=== PATIENT | male | born 1995 | race Caucasian/White ===

== ENCOUNTER 2016-09-19 00:44 | Emergency (ER) | payer SELFPAY ==
[~2016-09-19] VITALS: Ht 182.9 cm; Wt 63.5 kg
[2016-09-19 00:55] VITALS: BP 127/76
[2016-09-19] MEDS ORDERED: DIPHTH,PERTUSS(ACELL),TET TOX 0.5 ML DISP.SYRIN. VAX IM ONE ×2 (01:14→01:15)
[2016-09-19] MEDS ORDERED: AMOXICILLIN/K CLAV 875/125MG TABLET. ONE (01:14)
[2016-09-19] MEDS ORDERED: AMOXICILLIN/K CLAV 875/125MG TABLET. PO ONE (01:15)
[2016-09-19] MEDS ORDERED: AMOX1TAB61 PO (01:22)
--- NOTE | 2016-09-19 01:23 | PHYS DOC ---
Adult General Chief Complaint Chief Complaint: ANIMAL BITE HPI HPI Patient is a 21 year old male who presents with complaint of dog bite to the left calf. Patient states this took place approximately 30 minutes prior to arrival. Patient states that he was entering his own apartment. Patient states that a neighbor who had his dog on a leash in the department next to him was out from. The patient states that the dog may have become threatened by him in the vicinity of the medical imaging director. The patient states that the dog bit him once on the left calf. The incident was not reported. Patient states that the medical imaging director stated that the dog was up-to-date on his immunizations though this was not confirmed by paperwork. The patient states that the dog medical imaging director's easily locatable and that the dog could be observed over the next week to ensure no development of rabies symptoms. Patient states that there is minimal tenderness at the bite site. Patient rinse the area with water and applied Neosporin prior to arrival. Patient does not know when he last received his tetanus shot but states that this may have been over 5 years ago. Review of Systems Review of Systems Constitutional: Denies fever or chills [] HENT: Denies nasal congestion or sore throat [] Respiratory: Denies cough or shortness of breath [] Musculoskeletal: Denies back pain or joint pain [] Integument: Bite wound to left calf [] Neurologic: Denies headache, focal weakness or sensory changes [] Current Medications Current Medications Current Medications Medications (Trade) Dose Ordered Sig/Aimee Start Time Stop Time Status Last Admin Dose Admin Amoxicillin/ Clavulanate Potassium (Augmentin 875/ 125mg) 1 tab 1X ONCE 09/19/16 01:15 09/19/16 01:16 UNV 09/19/16 01:15 1 TAB Diphtheria/ Tetanus/Acell Pertussis (Boostrix) 0.5 ml STK-MED ONCE 09/19/16 01:14 09/19/16 01:15 DC Allergies Allergies Allergies Coded Allergies Type Severity Reaction Last Updated Verified No Known Drug Allergies 09/19/16 No Physical Exam Physical Exam Constitutional: Alert, afebrile, no acute distress. [] HENT: Normocephalic, atraumatic, bilateral external ears normal, oropharynx moist, no oral exudates, nose normal. [] Eyes: PERRLA, EOMI, conjunctiva normal, no discharge. [] Neck: Normal range of motion, no tenderness, supple, no stridor. [] Cardiovascular:Heart rate regular rhythm, no murmur [] Lungs & Thorax: Bilateral breath sounds clear to auscultation [] Abdomen: Bowel sounds normal, soft, no tenderness, no masses, no pulsatile masses. [] Skin: Warm, dry, no erythema, maculopapular rash along neck. [] Back: No tenderness, no CVA tenderness. [] Extremities: No tenderness, no cyanosis, superficial puncture wound to left lateral calf with no gaping, no clubbing, ROM intact, no edema. [] Neurologic: Alert and oriented X 3, normal motor function, normal sensory function, no focal deficits noted. [] Current Patient Data Vital Signs Vital Signs Date Time Temp Pulse Resp B/P (MAP) Pulse Ox O2 Delivery O2 Flow Rate FiO2 09/19/16 00:55 97.7 62 16 97 Room Air Lab Results None performed EKG EKG Not performed [] Radiology/Procedures Radiology/Procedures Not performed [] Course & Med Decision Making Course & Med Decision Making Pertinent Labs and Imaging studies reviewed. (See chart for details) Animal control was informed of the incident at 0114. The patient's bite wound is superficial. Given this proximity, the patient will be started on Augmentin for prophylaxis. Patient's wound was cleaned in the emergency department with chlorhexidine soap and rinsed. Antibiotic ointment was applied and a clean dressing was applied over the wound. Patient's tetanus was also updated in the emergency department. After examining the wound, I have low suspicion for retained foreign body. I did speak with the patient and the patient's mother regarding obtaining x-rays for rule out of subcutaneous foreign body versus observation and reevaluation. They have elected to go with observation and reevaluation and do not wish to have x-rays done in the emergency department. Advise follow-up with patient's primary doctor in the next 5-7 days for reevaluation. Advised return emergency department for any worsening symptoms. Patient and patient's mother voiced understanding and in agreement with treatment plan. Dragon Disclaimer Dragon Disclaimer This chart was dictated in whole or in part using Voice Recognition software in a busy, high-work load, and often noisy Emergency Department environment. It may contain unintended and wholly unrecognized errors or omissions. Departure Departure: Impression: Primary Impression: Dog bite of calf Additional Impression: Skin rash Disposition: HOME, SELF-CARE Condition: GOOD Referrals: SHON NICHOLS MD (PCP) Patient Instructions: Animal Bite, Wound Care, [id number] Additional Instructions: Follow-up with your primary doctor in the next 5-7 days for reevaluation. You may use hydrocortisone 1% cream applied topically as instructed on packaging as well as [id number] Benadryl capsules as directed on packaging for treatment of your skin rash. Return to the emergency department for any worsening symptoms. Scripts Amoxicillin/Potassium Clav (AUGMENTIN 875-125 TABLET) 1 Each Tablet 1 TAB PO BID, #10 TAB Prov: DEB PETTIT MD 09/19/16 Problem Qualifiers Primary Impression: Dog bite of calf Encounter type: initial encounter Laterality: left Qualified Codes: S81.852A - Open bite, left lower leg, initial encounter; W54.0XXA - Bitten by dog, initial encounter DEB PETTIT MD Sep 19, 2016 01:23
== END 2016-09-19 01:35 | disposition home or self-care (01) ==
LOC: ER 00:44
DX: S81.852A Open bite, left lower leg, initial encounter (principal); R21 Rash and other nonspecific skin eruption; W54.0XXA Bitten by dog, initial encounter; Y93.89 Activity, other specified; Y99.8 Other external cause status; Y92.89 Other specified places as the place of occurrence of the external cause
CPT/HCPCS: 90471; 90715; 99283-25

== ENCOUNTER 2021-08-11 | Emergency (ER) | payer SELFPAY ==
[~2021-08-11] VITALS: Ht 182.9 cm; Wt 64.5 kg
[~2021-08-11] MED LIST: AMOX1TAB61 PO
--- NOTE | 2021-08-11 00:38 | PHYS DOC ---
Past History Past Medical History: No Pertinent History Past Surgical History: No Surgical History Alcohol Use: Occasionally Drug Use: None General Adult EDM: Chief Complaint: Neck Pain HPI: HPI: 26-year-old male presents with right-sided neck swelling. He has had the swelling for 3 days. He is gotten substantially worse so he decided to come to the hospital. The patient believes that he had an ear infection several days ago that had lasted for nearly 2 weeks. He did not see anyone for this or get any treatment. He was not on antibiotics. The affected area was the left side. Patient is able to swallow but is gotten more painful today. He has had chills but no measured fever. Review of Systems: Review of Systems: Constitutional: Denies fever or chills Eyes: Denies change in visual acuity HENT: Severe right neck swelling Respiratory: Denies cough or shortness of breath Cardiovascular: Denies chest pain or edema GI: Denies abdominal pain, nausea, vomiting, bloody stools or diarrhea : Denies dysuria Musculoskeletal: Denies back pain or joint pain Integument: Denies rash Neurologic: Denies headache, focal weakness or sensory changes Endocrine: Denies polyuria or polydipsia Lymphatic: Denies swollen glands Psychiatric: Denies depression or anxiety Allergies: Allergies: Allergies Coded Allergies Type Severity Reaction Last Updated Verified No Known Drug Allergies 09/19/16 No Physical Exam: PE: Constitutional: Well developed, well nourished, no acute distress, non-toxic appearance. [] HENT: Normocephalic, atraumatic, bilateral external ears normal, oropharynx moist, no obvious tonsillar exudates, nose normal. [] Eyes: PERRLA, EOMI, conjunctiva normal, no discharge. [] Neck: Tenderness and severe swelling of the right neck [] Cardiovascular: Heart rate regular rhythm, no murmur [] Lungs & Thorax: Bilateral breath sounds clear to auscultation [] Abdomen: Bowel sounds normal, soft, no tenderness, no masses, no pulsatile masses. [] Skin: Warm, dry, no erythema, no rash. [] Back: No tenderness, no CVA tenderness. [] Extremities: No tenderness, no cyanosis, no clubbing, ROM intact, no edema. [] Neurologic: Alert and oriented X 3, normal motor function, normal sensory function, no focal deficits noted. [] Psychologic: Affect normal, judgement normal, mood normal. [] Current Patient Data: Vital Signs: Vital Signs Date Time Temp Pulse Resp B/P (MAP) Pulse Ox O2 Delivery O2 Flow Rate FiO2 08/11/21 00:22 98.9 90 18 142/96 (111) 95 Room Air EKG: EKG: [] Radiology/Procedures: Radiology/Procedures: [] Impressions: PQRS Compliance Statement: One or more of the following individualized dose reduction techniques were utilized for this examination: 1. Automated exposure control 2. Adjustment of the mA and/or kV according to patient size 3. Use of iterative reconstruction technique CT NECK SOFT TISSUE WITH IV CONTRAST Clinical Indication: Reason: neck swelling / Spl. Instructions: / History: Comparison: None. TECHNIQUE: Helical CT imaging of the soft tissues of the neck is performed after 72 cc of Omnipaque 300 IV contrast. Findings: Globes and orbits are intact. The paranasal sinuses are clear. The mastoid air cells are aerated. The right sternocleidomastoid muscle is enlarged. At the right angle of the mandible and just inferior there is a irregular fluid collection with rim e nhancement that measures up to 3.1 cm AP by 2.3 cm transverse by 3.4 cm craniocaudal. There is an enhancing soft tissue mass right submandibular that is probably an abnormal, enlarged lymph node that measures 1.9 x 2.6 cm. Anterior to this there are 2 additional soft tissue nodules, again probably reactive lymph nodes, the more lateral measures 1.1 cm, the more medial measures 1.2 cm. There is induration of the subcutaneous fat in the right submandibular region. Lung apices are clear. There are 2 tiny right thyroid nodules. The epiglottis, vallecula, and piriform sinuses are normal. There is reversal of normal cervical lordosis that may be positional or due to muscle spasm. There is no narrowing of the central canal. IMPRESSION: There is an abscess of the right submandibular neck. The right sternocleidomastoid muscle is enlarged and edematous. There are enlarged right submandibular lymph nodes, probably reactive. There is moderate narrowing of the right jugular vein secondary to mass effect from the abscess. The vein is patent. Electronically signed by: Jan Alvarado MD (08/11/2021 1:44 AM) [facility] DICTATED AND SIGNED BY: AJN ALVARADO MD DATE: 08/11/21 0137 CC: BRIDGET EMANUEL DO; PCP,ROSEANN ~ Heart Score: C/O Chest Pain: N/A Risk Factors: Risk Factors: DM, Current or recent (<one month) smoker, HTN, HLP, family history of CAD, obesity. Risk Scores: Score 0 - 3: 2.5% MACE over next 6 weeks - Discharge Home Score 4 - 6: 20.3% MACE over next 6 weeks - Admit for Clinical Observation Score 7 - 10: 72.7% MACE over next 6 weeks - Early Invasive Strategies Course & Med Decision Making: Course & Med Decision Making Pertinent Labs and Imaging studies reviewed. (See chart for details) The patient's white count is normal but he does have a left shift. His other labs are unremarkable. His CT scan does show an abscess of the right submandibular neck. See official read for details. I will cover the patient with a dose of Zosyn. He will need to be transferred to another facility. I spoke with Dr. Moore with the [facility] ED system and he has accepted the patient for transfer. The patient will transfer by ambulance. [] Dragon Disclaimer: Dragon Disclaimer: This electronic medical record was generated, in whole or in part, using a voice recognition dictation system. Departure Departure: Impression: Primary Impression: Neck abscess Disposition: 02 SHORT TERM HOSPITAL Condition: STABLE Referrals: PCP,ROSEANN (PCP) BRIDGET EMANUEL DO August 11, 2021 00:38
[2021-08-11] MEDS ORDERED: CONTRAST GIVEN. MC PRN (00:45)
[2021-08-11] MEDS ORDERED: IV NORMAL SALINE 1,000ML 1,000 ML IV ONE (01:00)
[2021-08-11] MEDS ORDERED: IOHEXOL 300 MG/ML 75 ML VIAL. IV ONE (01:00)
[2021-08-11 01:23] LABS: CALCIUM 8.8 mg/dL (8.5-10.1); CREATININE 0.8 mg/dL (0.7-1.3); GFR 117.8; POTASSIUM 4.1 mmol/L (3.5-5.1)
[2021-08-11 01:30] LABS: ALBUMIN 3.3 g/dL (3.4-5.0); BASO % 0 % (0-3); EOS # 0.1 x10^3/uL (0.0-0.7); EOS % 1 % (0-3); HEMATOCRIT 41.3 % (39.0-53.0); HEMOGLOBIN 14.2 g/dL (13.0-17.5); LYMPH # 0.9 x10^3/uL (1.0-4.8); LYMPH % 9 % (24-48); MEAN CORPUSCULAR HEMOGLOBIN 31 pg (25-35); MEAN CORPUSCULAR HGB CONC 35 g/dL (31-37); MEAN CORPUSCULAR VOLUME 90 fL (79-100); MONO # 1.4 x10^3/uL (0.0-1.1); MONO % 14 % (0-9); NEUT # 7.8 x10^3uL (1.8-7.7); NEUT % 77 % (31-73); PLATELET COUNT 170 x10^3/uL (140-400); RED BLOOD COUNT 4.61 x10^6/uL (4.30-5.70); RED CELL DISTRIBUTION WIDTH 12.7 % (11.5-14.5); TOTAL BILIRUBIN 0.6 mg/dL (0.2-1.0); TOTAL PROTEIN 6.5 g/dL (6.4-8.2); WHITE BLOOD COUNT 10.2 x10^3/uL (4.0-11.0)
--- NOTE | 2021-08-11 01:47 | RAD ---
PQRS Compliance Statement: One or more of the following individualized dose reduction techniques were utilized for this examinat ion: 1. Automated exposure control 2. Adjustment of the mA and/or kV according to patient size 3. Use of iterative reconstruction technique CT NECK SOFT TISSUE WITH IV CONTRAST Clinical Indication: Reason: neck swelling / Spl. Instructions: / History: Comparison: None. TECHNIQUE: Helical CT imaging of the soft tissues of the neck is performed after 72 cc of Omnipaque 3 00 IV contrast. Findings: Globes and orbits are intact. The paranasal sinuses are clear. The mastoid air cells are aerated. The right sternocleidomastoid muscle is enlarged. At the right angle of the mandible and just inferio r there is a irregular fluid collection with rim enhancement that measures up to 3.1 cm AP by 2.3 cm transverse by 3.4 cm craniocaudal. There is an enhancing soft tissue mass right submandibular that is probably an abnormal, enlarged lymph node that measures 1.9 x 2.6 cm. Anterior to this there are 2 a dditional soft tissue nodules, again probably reactive lymph nodes, the more lateral measures 1.1 cm, the more medial measures 1.2 cm. There is induration of the subcutaneous fat in the right submandibu lar region. Lung apices are clear. There are 2 tiny right thyroid nodules. The epiglottis, vallecula, and pirifor m sinuses are normal. There is reversal of normal cervical lordosis that may be positional or due to muscle spasm. There is no narrowing of the central canal. IMPRESSION: There is an abscess of the right submandibular neck. The right sternocleidomastoid muscle is enlarged and edematous. There are enlarged right submandibular lymph nodes, probably reactive. There is moder ate narrowing of the right jugular vein secondary to mass effect from the abscess. The vein is patent . Electronically signed by: Jan Corbett MD (08/11/2021 1:44 AM) [facility]
[2021-08-11] MEDS ORDERED: PIPERACILLIN/TAZOBACTAM 3.375 GM VIAL IV ONE (01:56)
[2021-08-11] MEDS ORDERED: IV NORMAL SALINE 50ML 50 ML ONE (01:56)
[2021-08-11] MEDS ORDERED: PIPERACILLIN/TAZOBACTAM 3.375 GM in IV NORMAL SALINE 50ML 50 ML IV ONE (02:00)
[2021-08-11 02:35] VITALS: BP 117/62
[2021-08-11] MEDS ORDERED: MORPHINE SULFATE 4 MG/ML DISP.SYRIN. IV ONE (03:30)
== END 2021-08-11 03:58 | disposition short-term general hospital (02) ==
LOC: ER
DX: L02.11 Cutaneous abscess of neck (principal)
CPT/HCPCS: 36415; 70491; 80053; 83605; 85025; 87040; 96361; 96365; 96375; 99285; J2270; J2543; J7030; Q9967